=== PATIENT | male | born 1990 | race African-American/Black ===

== ENCOUNTER 2024-07-25 12:13 | Emergency (ER) | payer BC, MEDICAID ==
[~2024-07-25] VITALS: Ht 172.7 cm; Wt 72.7 kg
[2024-07-25 12:34] VITALS: BP 118/84; PULSE 76; RESP 18; TEMP 98.5; O2SAT 99
[2024-07-25] MEDS ORDERED: DICL100G60 TP (13:48)
[2024-07-25] MEDS ORDERED: LIDO700A15 TP (13:48)
== END 2024-07-25 13:56 | disposition home or self-care (01) ==
LOC: EMS 12:13
DX: M25.512 Pain in left shoulder (principal)
CPT/HCPCS: 99283